=== PATIENT | male | born 1990 | race Caucasian/White ===

== ENCOUNTER 2020-08-23 22:18 | Inpatient (IN) | payer BC ==
[~2020-08-23] VITALS: Ht 188 cm; Wt 86.2 kg
[2020-08-23] MEDS ORDERED: CIMZIA (22:45)
[2020-08-23] MEDS ORDERED: HYDROMORPHONE 1 MG/1 ML DISP.SYRIN IV ONE (22:45)
[2020-08-23] MEDS ORDERED: IV NORMAL SALINE 1000 ML BAG IV ONE (22:45)
[2020-08-23] MEDS ORDERED: ONDANSETRON 4 MG/2 ML VIAL IV ONE (22:45)
[2020-08-23 22:56] LABS: BASOPHILS % (AUTO) 0.2 % (0.0-2.0); EOSINOPHILS # (AUTO) 0.1 K/uL (0.0-0.7); EOSINOPHILS % (AUTO) 0.4 % (0.0-7.0); HEMATOCRIT 40.1 % (36.7-47.1); HEMOGLOBIN 13.3 g/dL (12.5-16.3); LYMPHOCYTES # (AUTO) 1.4 K/uL (20.0-40.0); LYMPHOCYTES % (AUTO) 10.7 % (20.5-51.5); MEAN CORPUSCULAR HEMOGLOBIN 25.2 uug (23.8-33.4); MEAN CORPUSCULAR HGB CONC 33 g/dL (32.5-36.3); MEAN CORPUSCULAR VOLUME 75.8 fL (73.0-96.2); MONOCYTES # (AUTO) 1.3 K/uL (2.0-10.0); NEUTROPHILS # (AUTO) 10.5 K/uL (1.8-8.9); NEUTROPHILS % (AUTO) 78.7 % (38.5-71.5); PLATELET COUNT (AUTO) 393 K/uL (152-348); RED BLOOD CELL COUNT(AUTO) 5.29 MIL/uL (4.06-5.63); WHITE BLOOD COUNT (AUTO) 13.4 K/uL (3.6-10.2)
[2020-08-23] MEDS ORDERED: ONDANSETRON 4 MG/2 ML VIAL ONE (22:56)
[2020-08-23] MEDS ORDERED: HYDROMORPHONE 1 MG/1 ML DISP.SYRIN ONE (22:57)
--- NOTE | 2020-08-23 22:58 | NUR ---
Note undone in EDM - 08/24/20 at 0159 by KMORADI 29 year old male presents to the ED for Abdominal pain that started 2-4 days ago. Pain in in his lower abdomen and radiaties to his back - bilaterally. He does report emesis present for a few days. Hx of Crohns Disease. Fully alert and orientated. Cooperative and pleasant. Vitals all WNLs. Pain does appear to be in obvious pain (facial grimacing & gaurding of his abdomen when being palpated).
[2020-08-23 23:12] LABS: BILIRUBIN,DIRECT 0.1 mg/dL (0.0-0.2); BILIRUBIN,TOTAL 0.2 mg/dL (0.2-1.0); CREATININE 1.3 mg/dL (0.6-1.3); POTASSIUM 3.8 mmol/L (3.5-5.1); TOTAL PROTEIN, SERUM 7.9 g/dL (6.4-8.2)
[2020-08-23] MEDS ORDERED: SWABABLE VALVE TRANSFER SET EA MC ONE (23:18)
[2020-08-23] MEDS ORDERED: IV NORMAL SALINE 250 ML IV ONE (23:19)
[2020-08-23] MEDS ORDERED: IOHEXOL 300MG/ML 100 ML INFUS..BTL ONE (23:19)
[2020-08-24] MEDS ORDERED: methylPREDNISolone SOD SUCC 125 MG/2 ML VIAL IV ONE (00:30)
[2020-08-24] MEDS ORDERED: HYDROMORPHONE 1 MG/1 ML DISP.SYRIN IV ONE ×2 (00:30→02:30)
[2020-08-24] MEDS ORDERED: PIPERACILLIN SODIUM/TAZOBACTAM 3.375 G in IV DEXTROSE 5% 50 ML IV ONE (00:30)
[2020-08-24] MEDS ORDERED: HYDROMORPHONE 1 MG/1 ML DISP.SYRIN ONE (00:31)
[2020-08-24] MEDS ORDERED: methylPREDNISolone SOD SUCC 125 MG/2 ML VIAL ONE (00:31)
[2020-08-24] MEDS ORDERED: PIPERACILLIN/TAZOBACTAM/D5W 50 ML IV ONE (00:31)
--- NOTE | 2020-08-24 00:52 | NUR ---
CT w/contrast of abdomen shows Terminal Ileitis w/ Perforation. Surgeon Robb made aware - he will review case and decide whether or not surgery is needed.
[2020-08-24] MEDS ORDERED: HYDROMORPHONE 2 MG/1 ML DISP.SYRIN ONE (02:28)
--- NOTE | 2020-08-24 05:00 | NUR ---
ADMITTED THIS PT FROM ER VIA GURNEY, ALERT ,ORIENTED X4, PLEASANT AND COOPERATIVE WITH COMPLAINTS OF BILATERAL LOWER ABDOMINAL PAIN RADIATING TO THE BACK, HISTORY OF CROHN'S DISEASE, AFEBRILE,,NO ACUTE DISTRESS NOTED,IV SITE PATENT AND INTACT ON LEFT AC.NO COMPLAINTS OF PAIN PRESENTED AT THIS TIME. INSTRUCTED TO MAINTAIN NPO . NOTIFIED AND AWAITING FOR ORDERS .RESTING IN BED.
[2020-08-24 05:20] VITALS: BP 116/63
[2020-08-24] MEDS ORDERED: ONDANSETRON 4 MG/2 ML VIAL IV PRN (06:30)
[2020-08-24] MEDS ORDERED: PIPERACILLIN SODIUM/TAZOBACTAM 3.375 G in IV DEXTROSE 5% 50 ML IV SCH (06:30)
[2020-08-24] MEDS ORDERED: ACETAMINOPHEN 650 MG SUPP.RECT RC PRN (06:30)
--- NOTE | 2020-08-24 07:20 | NUR ---
ENDORSED TO AM NURSE IN APPARENTLY FAIR CONDITION.
[2020-08-24 07:21] LABS: HEMATOCRIT 39.1 % (36.7-47.1); HEMOGLOBIN 13.2 g/dL (12.5-16.3); LYMPHOCYTES # (AUTO) 0.8 K/uL (20.0-40.0); LYMPHOCYTES % (AUTO) 6.6 % (20.5-51.5); MEAN CORPUSCULAR HEMOGLOBIN 25.7 uug (23.8-33.4); MEAN CORPUSCULAR HGB CONC 34 g/dL (32.5-36.3); MEAN CORPUSCULAR VOLUME 76.2 fL (73.0-96.2); MONOCYTES # (AUTO) 0.1 K/uL (2.0-10.0); MONOCYTES % (AUTO) 1.1 % (0.0-11.0); NEUTROPHILS # (AUTO) 11.8 K/uL (1.8-8.9); NEUTROPHILS % (AUTO) 92.3 % (38.5-71.5); PLATELET COUNT (AUTO) 384 K/uL (152-348); RED BLOOD CELL COUNT(AUTO) 5.13 MIL/uL (4.06-5.63); WHITE BLOOD COUNT (AUTO) 12.8 K/uL (3.6-10.2)
[2020-08-24 07:42] LABS: CREATININE 1.1 mg/dL (0.6-1.3); MAGNESIUM 2.1 mg/dL (1.8-2.4); PHOSPHOROUS 3.5 mg/dL (2.5-4.9); POTASSIUM 4.4 mmol/L (3.5-5.1)
[2020-08-24] MEDS: IV D5/ 0.9% NACL 1,000 ML IV PRN (08:02)
[2020-08-24] MEDS: PANTOPRAZOLE SODIUM 40 MG VIAL IV SCH (08:02)
[2020-08-24] MEDS: PIPERACILLIN SODIUM/TAZOBACTAM 3.37 G in IV DEXTROSE 5% 100 ML IV SCH ×3 (08:02→23:58)
--- NOTE | 2020-08-24 08:28 | NUR ---
SEEN BY DR. RAMOS - SURGERY. SEE MD NOTES FOR NEW ORDERS.
[2020-08-24] MEDS: HYDROMORPHONE 1 MG/1 ML DISP.SYRIN IV PRN ×4 (09:07→22:08)
[2020-08-24 11:49] VITALS: BP 113/62
[2020-08-24] MEDS: methylPREDNISolone SOD SUCC 40 MG/ML VIAL IV SCH ×2 (13:35→22:01)
[2020-08-24 16:00] VITALS: BP 109/59
--- NOTE | 2020-08-24 19:00 | NUR ---
RECD PT IN BED RESTING, ALERT AND ORIENTEDX4, NEEDS ATTENDED TO, IVF INFUSING WELL TO LEFT AC,VOIDED FREELY WELL,UP AND ABOUT.
[2020-08-24 20:00] VITALS: BP 102/69
--- NOTE | 2020-08-24 20:45 | NUR ---
SEEN BY FRANKLIN MA FOR INF DISEASE, DISCUSSED TREATMENT PLANS W/PT.
[2020-08-24] MEDS: ENOXAPARIN SODIUM 40 MG/0.4 ML DISP.SYRIN SQ SCH (22:01)
--- NOTE | 2020-08-24 23:00 | NUR ---
DUE MEDS GIVEN, INCLUDING DILAUDUD .5 MG FOR ABD PAIN.RELIEF AFFORDED.
--- NOTE | 2020-08-24 23:09 | NUR ---
NO ACUTE DISTRESS NOTED, KEPT WARM AND COMFORTABLE.NPO OBSERVED AND MAINTAINED.
[2020-08-25 04:00] VITALS: BP 130/77
[2020-08-25] MEDS: HYDROMORPHONE 1 MG/1 ML DISP.SYRIN IV PRN ×2 (04:36→08:43)
[2020-08-25 06:17] LABS: HEMATOCRIT 37.8 % (36.7-47.1); HEMOGLOBIN 12.5 g/dL (12.5-16.3); LYMPHOCYTES # (AUTO) 0.8 K/uL (20.0-40.0); LYMPHOCYTES % (AUTO) 7.4 % (20.5-51.5); MEAN CORPUSCULAR HEMOGLOBIN 25.1 uug (23.8-33.4); MEAN CORPUSCULAR HGB CONC 33 g/dL (32.5-36.3); MEAN CORPUSCULAR VOLUME 75.8 fL (73.0-96.2); MONOCYTES # (AUTO) 0.9 K/uL (2.0-10.0); MONOCYTES % (AUTO) 7.9 % (0.0-11.0); NEUTROPHILS # (AUTO) 9.2 K/uL (1.8-8.9); NEUTROPHILS % (AUTO) 84.7 % (38.5-71.5); PLATELET COUNT (AUTO) 408 K/uL (152-348); RED BLOOD CELL COUNT(AUTO) 4.99 MIL/uL (4.06-5.63); WHITE BLOOD COUNT (AUTO) 10.9 K/uL (3.6-10.2)
[2020-08-25] MEDS: methylPREDNISolone SOD SUCC 40 MG/ML VIAL IV SCH ×3 (06:29→22:03)
--- NOTE | 2020-08-25 06:33 | NUR ---
had dionne noc, slept on and off, pain med effective in relieving abd. .pain,ivf infusing well.
[2020-08-25 06:37] LABS: MAGNESIUM 2.3 mg/dL (1.8-2.4); PHOSPHOROUS 4.2 mg/dL (2.5-4.9); POTASSIUM 4.1 mmol/L (3.5-5.1)
--- NOTE | 2020-08-25 07:30 | NUR ---
Received patient awake in bed. Alert and oriented x4. On room air. Left AC #18 IV access with D5 NS at 80cc/hr. Will continue to monitor.
[2020-08-25 07:47] VITALS: BP 100/67
[2020-08-25] MEDS: PIPERACILLIN SODIUM/TAZOBACTAM 3.37 G in IV DEXTROSE 5% 100 ML IV SCH ×2 (08:04→15:46)
[2020-08-25] MEDS: PANTOPRAZOLE SODIUM 40 MG VIAL IV SCH (08:38)
[2020-08-25] MEDS: HYDROCODONE/APAP 5-325MG TABLET PO PRN ×2 (15:43→22:04)
[2020-08-25 16:04] VITALS: BP 104/56
--- NOTE | 2020-08-25 20:00 | NUR ---
Received patient in bed AAOx4. No s/s of acute distress noted at this time. Patient on RA denies SOB. Left AC IV patent and intact, infusing ordered fluids. Safety measures in place, call light within reach, and bed low.
[2020-08-25 20:03] VITALS: BP 109/64
[2020-08-25] MEDS: ENOXAPARIN SODIUM 40 MG/0.4 ML DISP.SYRIN SQ SCH (20:21)
[2020-08-25] MEDS: IV D5/ 0.9% NACL 1,000 ML IV PRN (20:21)
[2020-08-26] MEDS: PIPERACILLIN SODIUM/TAZOBACTAM 3.37 G in IV DEXTROSE 5% 100 ML IV SCH ×2 (00:17→08:57)
[2020-08-26 04:00] VITALS: BP 111/68
[2020-08-26] MEDS: HYDROCODONE/APAP 5-325MG TABLET PO PRN ×2 (05:11→12:46)
[2020-08-26] MEDS: methylPREDNISolone SOD SUCC 40 MG/ML VIAL IV SCH ×2 (05:11→13:36)
[2020-08-26 06:22] LABS: HEMATOCRIT 36.9 % (36.7-47.1); HEMOGLOBIN 12.4 g/dL (12.5-16.3); LYMPHOCYTES # (AUTO) 0.9 K/uL (20.0-40.0); MEAN CORPUSCULAR HEMOGLOBIN 25.6 uug (23.8-33.4); MEAN CORPUSCULAR HGB CONC 34 g/dL (32.5-36.3); MEAN CORPUSCULAR VOLUME 75.9 fL (73.0-96.2); MONOCYTES # (AUTO) 0.3 K/uL (2.0-10.0); MONOCYTES % (AUTO) 2.9 % (0.0-11.0); NEUTROPHILS # (AUTO) 8.3 K/uL (1.8-8.9); NEUTROPHILS % (AUTO) 88.1 % (38.5-71.5); PLATELET COUNT (AUTO) 385 K/uL (152-348); RED BLOOD CELL COUNT(AUTO) 4.86 MIL/uL (4.06-5.63); WHITE BLOOD COUNT (AUTO) 9.5 K/uL (3.6-10.2)
[2020-08-26 06:35] LABS: CREATININE 1.1 mg/dL (0.6-1.3); MAGNESIUM 2.2 mg/dL (1.8-2.4); PHOSPHOROUS 3.6 mg/dL (2.5-4.9); POTASSIUM 4.2 mmol/L (3.5-5.1)
--- NOTE | 2020-08-26 06:41 | NUR ---
Patient slept intermittently. Pain medication administered and effective for abdominal pain. Left AC IV patent and intact, infusing ordered fluids. All patient needs were met and attended to. Safety measures in place, will endorse to oncoming shift.
[2020-08-26] MEDS ORDERED: METH4TAB3 PO (07:08)
[2020-08-26] MEDS ORDERED: CIPR-262 PO (07:08)
[2020-08-26] MEDS ORDERED: METR500T PO (07:08)
--- NOTE | 2020-08-26 07:30 | NUR ---
Received patient awake in bed. Alert and oriented x4. On room air. No signs of acute distress. Left AC 18gauge with D5 NS running 80cc/hr. Will continue to monitor.
[2020-08-26 07:49] VITALS: BP 118/63
[2020-08-26] MEDS: PANTOPRAZOLE SODIUM 40 MG VIAL IV SCH (09:13)
[2020-08-26] MEDS ORDERED: TRAM100T39 PO (09:29)
[2020-08-26 11:31] VITALS: BP 119/69
--- NOTE | 2020-08-26 15:05 | NUR ---
Discharged patient to home. Alert and oriented x 4. On room air. No signs of acute distress. Discharge instructions explained and documentation given to patient. Medication prescription given to patient. Informed patient to follow up with primary care provider in 1-2 weeks. Patient's belongings accounted for and belonging list signed. IV access removed. Id band removed. Patient picked up by via private car.
[2020-08-26 15:08] VITALS: BP 120/67
== END 2020-08-26 15:00 | disposition home or self-care (01) | DRG 385 ==
LOC: ER 22:23 → MEDSURG3 08-24 00:29
PROVIDERS: ADMIT Nurse Practitioner Acute Care; ATTEND Nurse Practitioner Acute Care
DX: K50.014 Crohn's disease of small intestine with abscess (principal); K63.1 Perforation of intestine (nontraumatic); Z20.822 Contact with and (suspected) exposure to COVID-19
CPT/HCPCS: 36415; 83550; 83605; 83690; 83735; 84100; 85025; 85730; 86140; A4663; C9113; G0378; J1170; J1650; J2405; J2543; J2920; J2930; J7030; J7042; J7050; J7060; Q9967